=== PATIENT | female | born 2000 | race Two or more races ===

== ENCOUNTER 2025-03-24 08:36 | Emergency (ER) | payer OTHER ==
[~2025-03-24] VITALS: Ht 165.1 cm; Wt 65.8 kg
[2025-03-24] MEDS ORDERED: ACETAMINOPHEN 500 MG GEL..CAP PO ONE (09:45)
[2025-03-24 10:13] LABS: BASO % 0.5 % (0.1-1.2); EOS # 0.43 (0.04-0.54); EOS % 5.4 % (0.7-7.0); LYMPH # 1.98 (1.18-3.74); LYMPH % 25.1 % (19.3-53.1); MEAN PLATELET VOLUME 10.00 fl (9.4-12.4); MONO # 0.69 (0.24-0.82); MONO % 8.7 % (4.7-12.5); NEUT # 4.74 (1.56-6.13); NEUT % 60.0 % (34.0-71.1); RED CELL DISTRIBUTION WIDTH 12.8 % (11.6-14.4)
[2025-03-24 10:57] LABS: INR 1.0
== END 2025-03-24 13:39 | disposition home or self-care (01) ==
LOC: ER 08:36
PROVIDERS: General Practice
DX: R04.0 Epistaxis (principal); E16.2 Hypoglycemia, unspecified; Z88.0 Allergy status to penicillin; Z87.09 Personal history of other diseases of the respiratory system